=== PATIENT | female | born 2000 | race Two or more races ===

== ENCOUNTER 2022-08-28 05:08 | Emergency (ER) | payer OTHER, SELFPAY ==
--- NOTE | ~2022-08-28 | CT_ITS ---
EXAMINATION: CT ABDOMEN AND PELVIS WITHOUT CONTRAST CLINICAL INFORMATION: Right lower quadrant tenderness rule out appendicitis COMPARISON: None TECHNIQUE: Multidetector volumetric imaging was performed from the superior aspect of the liver through the pubic symphysis. Sagittal and coronal reformatted images were obtained on the technologist's workstation. This CT examination was performed using dose optimization techniques as appropriate, variously including the following: *Automated exposure control *Adjustment of mA and/or kV according to patient size (this includes techniques or standardized protocols for targeted exams where dose is matched to indication/reason for exam; i.e. extremities or head) *Use of iterative reconstruction technique DLP: 793 mGy-cm FINDINGS: LUNG BASES: The visualized lung bases are unremarkable. LIVER, GALLBLADDER, AND BILIARY TREE: The liver is enlarged measuring 19 cm in cephalocaudad dimension and demonstrates decreased attenuation consistent with hepatic steatosis. No focal hepatic lesion or biliary ductal dilatation is present. The gallbladder is not present. PANCREAS: Unremarkable. SPLEEN: Unremarkable. ADRENAL GLANDS: Unremarkable. KIDNEYS AND URETERS: The kidneys are normal in size, shape, and attenuation. No hydronephrosis, hydroureter, or calculi seen. No perinephric stranding. BLADDER: Unremarkable. GASTROINTESTINAL TRACT: The small and large bowel are unremarkable. The appendix is unremarkable. ABDOMINAL WALL: No significant hernia is appreciated. LYMPH NODES: Normal. VASCULAR: Unremarkable. PELVIC VISCERA: The uterus and adnexa are unremarkable. OSSEOUS STRUCTURES: There is mild biconvex thoracolumbar scoliosis. CT/CT abdomen pelvis wo IV con IMPRESSION: 1. A cause for the patient's acute right lower quadrant pain has not been found. The appendix is normal. 2. Incidental note made of an enlarged fatty liver. Fleischner guidelines were followed.
[2022-08-28 05:22] VITALS: BP 124/80; BP 150/90; PULSE 100; PULSE 104; RESP 16; TEMP 36.9; O2SAT 100; O2SAT 96; BMI 40.4
--- NOTE | 2022-08-28 05:29 | PC.NURSE ---
Pt reporting nausea, vomiting, diarrhea x12 hours. Pt brother at home had similar symptoms yesterday. Pt has hx of abdominal problems and vomiting has triggered pain in the center of her stomach and into her chest. EMS placed a 20g in the left hand and administered zofran. Pt stated some relief but is still nauseas with pain in the stomach and epigastric areas. Protocol orders have been put in and pt will continue to be monitored. Pt is currently waiting to see a provider.
[2022-08-28 05:43] LABS: Basophils Percent Auto 0.2 % (0-2); Eosinophils Percent Auto 0.2 % (0-4); Hematocrit 39.2 % (37.0-47.0); Hemoglobin 12.9 g/dl (12.0-16.0); Imm Gran Abs Auto 0.02 X10*3/uL (0.00-0.03); Imm Gran Pct Auto 0.2 % (0.0-0.4); Lymphocytes Absolute Auto 0.7 X10*3/uL (1.2-4.9); Lymphocytes Percent Auto 5.3 % (20-40); MANUAL DIFF FLAG SCAN; Mean Corpuscular HGB Conc 32.9 g/dl (31.0-35.0); Mean Corpuscular Hemoglobin 25.5 pg (27.0-33.0); Mean Corpuscular Volume 77.6 fL (80.0-98.0); Mean Platelet Volume 7.5 fL (9.4-12.3); Monocytes Absolute Auto 0.5 X10*3/uL (0.1-1.2); Monocytes Percent Auto 3.6 % (2-11); Neutrophils Absolute Auto 11.5 x10*3/uL (2.0-8.3); Neutrophils Percent Auto 90.5 % (45-73); Platelet Count 430 X10*3/uL (160-400); Red Blood Count 5.05 X10*6/uL (4.20-5.50); Red Cell Distribution Width 13.1 % (11.0-16.0); SCAN SMEAR FLAG 1; White Blood Count 12.7 X10*3/uL (4.8-10.8)
[2022-08-28 06:00] VITALS: BP 123/66; PULSE 98; TEMP 36.6; O2SAT 98
[2022-08-28 06:01] LABS: SLIDE REVIEW VERIFIED
[2022-08-28 06:05] LABS: Alanine Aminotransferase 28 U/L (0-31); Albumin Level 4.6 g/dL (3.5-5.0); Alkaline Phosphatase 66 U/L (39-117); Anion Gap 15 (12-20); Aspartate Amino Transferase 22 U/L (5-31); Bilirubin Direct 0.2 mg/dL (0.0-0.5); Bilirubin Total 0.5 mg/dL (0.0-1.0); Blood Urea Nitrogen 12 mg/dL (9-16); Calcium 9.5 mg/dL (8.4-10.2); Carbon Dioxide 23 mmol/L (22-29); Chloride 106 mmol/L (96-108); Creatinine Clr Calc Pharmacy 143.9; Estimated Glomerular Filt Rate > 60; Glucose Random 130 mg/dL (60-115); Lipase 27 U/L (8-78); Potassium 4.5 mmol/L (3.3-5.1); Sodium 139 mmol/L (135-145); Total Protein 7.3 g/dL (6.5-8.0)
--- NOTE | 2022-08-28 06:14 | ED.ABDPAIN ---
HPI - Abdominal Pain General Chief Complaint: Nausea/Vomiting/Diarrhea Stated Complaint: abdominal pain Time Seen by Provider: 08/28/22 06:02 Source: patient Mode of arrival: ambulatory Limitations: no limitations History of Present Illness HPI narrative: 21-year-old female who presents emergency department for evaluation of abdominal pain, nausea, vomiting and diarrhea. The patient states that she developed abdominal pain last night around 19:00 hours. She states the pain came on gradually but got progressively worse. She describes the pain is a constant, burning sensation. She states that initially the pain started in the umbilical area and now the pain is more prominent in her lower abdomen, right greater than left. Patient states that the pain is 10/10 at the time of evaluation. Patient complains of nausea. She states she has been vomiting and she lost count of the number of episodes. She also states that when she vomits she has diarrhea and she has also lost count of the episodes. She states the diarrhea is yellow. She has not noticed any blood in the vomit or diarrhea. The patient denied fever but did have shaking chills, she complains of rhinorrhea, chest pain with vomiting shortness of breath and urinary frequency. She does not know when her last menstrual period occurred since she states that her menses are irregular. MD elicited complaint: abdominal pain Onset (ago): hour(s) (12) Pain Consistency: constant Location: RLQ and LLQ Severity: severe Pain scale (0-10): 10 Quality: burning Radiation: none Migration to: LLQ and RLQ Exacerbating factors: nothing Relieving factors: nothing Associated symptoms: nausea, vomiting, diarrhea and chills Related Data Home Medications Medication Instructions Recorded Confirmed No Known Home Meds 08/28/22 08/28/22 Allergies Allergy/AdvReac Type Severity Reaction Status Date / Time citromycin Allergy Anaphylaxis Uncoded 08/28/22 05:26 Review of Systems Review of Systems Yes all other systems are reviewed and are negative [facility] Past Medical History [facility] Narrative: Past medical history: Syncope. Past surgical history: Cholecystectomy at age 15. Social history: She denies tobacco, alcohol and drug use. Social History Social History Alcohol intake: never Smoked in Last 30 Days: No Use of substances other than those prescribed or required for medical reasons: No Advance Directives: No Advance Directives Information Provided: No Patient : No Physical Exam ED Vital Signs: Vital Signs - 24 hr 08/28/22 05:22 08/28/22 05:22 Temperature 98.4 F 98.4 F Pulse Rate 104 H 104 H Respiratory Rate 16 16 Blood Pressure 124/80 124/80 Pulse Oximetry 96 96 Oxygen Delivery Method Room Air Room Air BMI result Body Mass Index 40.4 Const Other: Awake, alert, female patient, she does appear to be in distress secondary to her pain, she answers all questions appropriately, she has an elevated BMI of 40.4 HENKY Head: Yes normal to inspection, Yes normocephalic and Yes atraumatic Ears: external ears normal General nose exam: Normal external nose present Face and sinus: Yes normal facial exam Mouth: Normal oral and palatal mucosa present Throat: Yes posterior oropharynx normal Eyes General: appearance normal, both eyes and all related structures Pupils: Equal, round and reactive pupils present Neck Neck: Yes normal visual inspection, Yes no lymphadenopathy, Yes trachea midline and Yes supple Chest Chest palpation & inspection: normal inspection of the chest and normal palpation of entire chest wall Resp Effort & Inspection: normal respiratory effort and able to speak in complete sentences Auscultation: clear to auscultation bilaterally Cardio Rate: regular rate Rhythm: regular rhythm Heart sounds: S1 normal heart sound present, S2 normal heart sound present and no murmurs GI Inspection: Yes normal to inspection Palpation (GI): Soft to palpation, Tenderness to palpation present (GI) (Mild diffuse tenderness) in the LLQ ([id number]) and in the RLQ (Moderate) and no guarding Auscultation: normal bowel sounds General: Yes no CVA tenderness Back/Spine/Pelvis Back: no CVA tenderness Skin General skin exam: no rashes or lesions noted Neuro Cranial nerves: Yes CN's II-XII intact bilaterally and Yes Equal, round and reactive pupils present Cognition (Neuro): normal cognition Motor exam (neuro): 5/5 motor strength present throughout Extrem General: Yes normal to inspection Psych Appearance: grossly normal Speech and movement: Normal speech and movement present Affect: normal affect Course Course Course Narrative: 21-year-old female who presents emergency department for evaluation of 12 hours of abdominal pain which began in the umbilical area and then migrated to the lower abdomen right greater than left, nausea, vomiting and diarrhea. The patient's vital signs revealed a heart rate of 104 otherwise were unremarkable. Physical examination did reveal diffuse mild abdominal tenderness with increased tenderness in the left lower quadrant and right lower quadrant with right being greater than left. Differential includes was not limited to acute appendicitis, viral syndrome with vomiting and diarrhea, colitis. I ordered a CBC, BMP, liver panel test, lipase, quantitative beta-hCG, urinalysis, SARs-CoV2/flu/RSV test. Patient was treated with Toradol 30 mg IV, Zofran 4 mg IV and normal saline x1 L . I will obtain a CT scan of the abdomen pelvis with IV contrast to evaluate for possible appendicitis. Versus colitis. Medical Decision Making Lab Data Result Diagrams: 08/28/22 05:38 08/28/22 05:38 Labs: Lab Results 08/28/22 08/28/22 Range/Units 05:38 05:38 WBC 12.7 H (4.8-10.8) X10*3/uL RBC 5.05 (4.20-5.50) X10*6/uL Hgb 12.9 (12.0-16.0) g/dl Hct 39.2 (37.0-47.0) % MCV 77.6 L (80.0-98.0) fL MCH 25.5 L (27.0-33.0) pg MCHC 32.9 (31.0-35.0) g/dl RDW 13.1 (11.0-16.0) % Plt Count 430 H (160-400) X10*3/uL MPV 7.5 L (9.4-12.3) fL Immature Gran % (Auto) 0.2 (0.0-0.4) % Neut % (Auto) 90.5 H (45-73) % Lymph % (Auto) 5.3 L (20-40) % Pershing % (Auto) 3.6 (2-11) % Eos % (Auto) 0.2 (0-4) % Baso % (Auto) 0.2 (0-2) % Lymph # (Auto) 0.7 L (1.2-4.9) X10*3/uL Pershing # (Auto) 0.5 (0.1-1.2) X10*3/uL Eos # (Auto) 0.0 (0.0-0.4) X10*3/uL Baso # (Auto) 0.0 (0.0-0.2) X10*3/uL Abs Immat Gran (auto) 0.02 (0.00-0.03) X10*3/uL Absolute Neuts (auto) 11.5 H (2.0-8.3) x10*3/uL Absolute Nucleated RBC 0.000 (0.0-0.012) X10*3/uL Nucleated RBC % (auto) 0.0 (0.0-0.2) /100WBC Smear Tech's Comments VERIFIED Sodium 139 (135-145) mmol/L Potassium 4.5 (3.3-5.1) mmol/L Chloride 106 (96-108) mmol/L Carbon Dioxide 23 (22-29) mmol/L Anion Gap 15 (12-20) BUN 12 (9-16) mg/dL Creatinine 0.67 (0.5-1.4) mg/dL Estim Creat Clear Calc 143.9 Estimated GFR > 60 Random Glucose 130 H (60-115) mg/dL Calcium 9.5 (8.4-10.2) mg/dL Total Bilirubin 0.5 (0.0-1.0) mg/dL Direct Bilirubin 0.2 (0.0-0.5) mg/dL AST 22 (5-31) U/L ALT 28 (0-31) U/L Alkaline Phosphatase 66 (39-117) U/L Total Protein 7.3 (6.5-8.0) g/dL Albumin 4.6 (3.5-5.0) g/dL Lipase 27 (8-78) U/L Discharge Plan Discharge Clinical Impression: Abdominal pain, Nausea & vomiting, Diarrhea Patient Disposition: Still a Patient Prescriptions: No Action No Known Home Meds
[2022-08-28] MEDS: 0.9 % Sodium Chloride 1,000 ML 999 ML IV ×2 (06:35→09:18)
[2022-08-28] MEDS: Ketorolac Tromethamine 15 MG/ML VIAL 30 MG IVPUSH (06:35)
[2022-08-28] MEDS: ondansetron HCL 4 MG/2 ML VIAL IVPUSH ×2 (06:36→08:28)
[2022-08-28 06:37] LABS: HCG Quantitative < 2 mIU/mL
[2022-08-28 07:17] VITALS: BP 115/66; PULSE 84; RESP 18; TEMP 37.2; O2SAT 98
--- NOTE | 2022-08-28 07:51 | PC.NURSE ---
patient a/ox4 . saeedrsony . heart rate regular at 84 beats per minute . breathing even and unlabored . lungs clear throughout . skin pink warm and dry . abdomen soft , hyopoactive bowel bowel sounds noted throughout . rebound tenderness noted in right quadrant . patient reports 8 out of 10 pain level with nausea . Provider aware , waiting for new orders . patient aware of need for urine sample . patient on compliance monitor . patient aware of plan of care .
[2022-08-28] MEDS: fentaNYL citrate/PF 100 MCG/2 ML VIAL 12.5 MCG IVPUSH (08:28)
--- NOTE | 2022-08-28 08:35 | PC.NURSE ---
Patient medicated with 12.5 mcg fentayl citrate IVP and 4mg Zofran IVP for nausea as ordered by provider . patient on nuclear monitoring technician . patient aware of plan of care .
[2022-08-28 08:47] LABS: Influenza A PCR NEGATIVE (Negative); Influenza B PCR NEGATIVE (Negative); Resp Syncy Virus RNA Qual PCR NEGATIVE (Negative); SARS COV2 PCR INHOUSE NEGATIVE (Negative)
[2022-08-28 09:47] LABS: Appearance Urine Clear; Color Urine Yellow; Glucose Urine UA Negative (Negative); Leukocyte Esterase Urine Negative (Negative); Nitrite Urine Negative (Negative); PH 6.5 (5.0-9.0); Specific Gravity - Urine >= 1.030 (1.005-1.025); Urine Blood Negative (Negative); Urine Ketones Negative (Negative); Urine Protein Negative (Neg-Trace)
--- NOTE | 2022-08-28 11:13 | PC.NURSE ---
patient a/ox4 . VSS . Went over discharge instructions as ordered by provider . patient to return if symptoms worsen . patient to follow up with primary care . no questions at this time .
== END 2022-08-28 11:16 | disposition home or self-care (01) ==
PROVIDERS: Emergency Medicine Emergency Medical Services; Emergency Provider Student in an Organized Health Care Education/Training Program
DX: R10.9 Unspecified abdominal pain (principal); R11.2 Nausea with vomiting, unspecified; R19.7 Diarrhea, unspecified; Z20.822 Contact with and (suspected) exposure to COVID-19; Z79.899 Other long term (current) drug therapy
CPT/HCPCS: 0241U; 36415; 74176; 80048; 80076; 81003; 83690; 84702; 85025; 96361; 96374; 96375; 96376; 99285; J1885; J2405; J3010

== ENCOUNTER 2024-04-21 17:28 | Emergency (ER) | payer OTHER, SELFPAY ==
--- NOTE | ~2024-04-21 | XR_ITS ---
EXAMINATION: XR ankle RT min 3V, XR foot RT min 3V INDICATION: twisted ankle COMPARISON: No pertinent prior studies are currently available for comparison. TECHNIQUE: 2 views of the right ankle with 3 views the right foot including a lateral view of the foot and ankle FINDINGS: Right ankle: Soft tissue swelling is seen more so laterally. No significant ankle joint effusion. Bones are normal anatomic alignment with no acute fracture or dislocation seen. Ankle mortise alignment is intact. Right foot: Bones are normal anatomic alignment with no acute fracture or dislocation seen. No bony destructive lesions or periosteal reaction. XR/XR foot RT min 3V IMPRESSION: Soft tissue swelling but no acute fracture or dislocation seen.
--- NOTE | ~2024-04-21 | XR_ITS ---
EXAMINATION: XR ankle RT min 3V, XR foot RT min 3V INDICATION: twisted ankle COMPARISON: No pertinent prior studies are currently available for comparison. TECHNIQUE: 2 views of the right ankle with 3 views the right foot including a lateral view of the foot and ankle FINDINGS: Right ankle: Soft tissue swelling is seen more so laterally. No significant ankle joint effusion. Bones are normal anatomic alignment with no acute fracture or dislocation seen. Ankle mortise alignment is intact. Right foot: Bones are normal anatomic alignment with no acute fracture or dislocation seen. No bony destructive lesions or periosteal reaction. XR/XR ankle RT min 3V IMPRESSION: Soft tissue swelling but no acute fracture or dislocation seen.
--- NOTE | 2024-04-21 17:41 | ED.LOWEXIN ---
HPI - Extremity Injury (Lower) General Chief Complaint: Fall Stated Complaint: right ankle inj Time Seen by Provider: 04/21/24 18:29 Source: patient Mode of arrival: wheelchair Limitations: no limitations History of Present Illness ED Provider: molly AGUILAR Narrative: Patient is a 23-year-old female presenting to the emergency department with complaint of right ankle pain and swelling after a slip and fall down 4 stairs on the porch prior to arrival. States that when she landed she sat onto her ankle with her foot underneath her. Denies head strike but does report loss of consciousness after injury and needed assistance with standing. Has not been able to bear weight on right foot since. Reports history of syncope in the past, feels this was related to her severe pain. She is not anticoagulated. History of prior sprains to right ankle in the past. Denies chest pain, dyspnea, palpitations. Denies current dizziness or lightheadedness. Denies numbness or tingling to ankle/foot. Initially stating she is unable to move her toes, then clarified this was due to pain and is able to move her toes. complaint: ankle injury Onset (ago): hour(s) Injury: Right: ankle Place: home Severity: severe Relieving factors: rest Exacerbating factors: movement and palpation Context: fall Associated symptoms: swelling and unable to bear weight Other symptoms: loss of consciousness Treatments prior to arrival: cold therapy Related Data Previous Rx's ?Medication ?Instructions ?Recorded prochlorperazine 25 mg rectal 25 mg ID BID PRN nausea and 08/28/22 suppository (Compazine) vomiting #12 ea Allergies Allergy/AdvReac Type Severity Reaction Status Date / Time amoxicillin Allergy Anaphylaxis Verified 04/21/24 17:43 citromycin Allergy Anaphylaxis Uncoded 08/28/22 05:26 Review of Systems Review of Systems: As per HPI. Yes all other systems are reviewed and are negative Constitutional: Constitutional: Reports as per HPI PMF Social History Social History Alcohol intake: never Advance Directives: No Advance Directives Information Provided: No Physical Exam Vital Signs: Vital Signs: Last Vital Signs Temp 98.2 F 04/21/24 21:06 Pulse 88 04/21/24 21:06 Resp 20 04/21/24 21:06 BP 115/72 04/21/24 21:06 Pulse Ox 99 04/21/24 21:06 O2 Del Method Room Air 04/21/24 21:06 BMI result Body Mass Index 39.7 Vital signs have been reviewed and appear to be correct. Blood pressure normal. Heart rate slightly tachycardic. Respiratory rate normal. Temperature normal. Oxygen saturation normal. Const: General: cooperative, healthy appearing and no acute distress Orientation/consciousness: oriented to person, oriented to place, oriented to time and patient oriented x3 Limitations: no limitations HEENT: Head: Yes normocephalic and Yes atraumatic Ears: external ears normal General nose exam: Normal external nose present Face and sinus: Yes face symmetric Mouth: oropharynx normal and moist mucous membranes Throat: Yes uvula midline Eyes: Pupils: Equal, round and reactive pupils present Neck: Neck: Yes normal visual inspection and Yes supple Resp: Effort & Inspection: normal respiratory effort and able to speak in complete sentences Auscultation: clear to auscultation bilaterally Cardio: Rate: regular rate Rhythm: regular rhythm Heart sounds: S1 normal heart sound present and S2 normal heart sound present GI: Palpation (GI): Soft to palpation and nontender Auscultation: normoactive bowel sounds : General: Yes no CVA tenderness Back/Spine/Pelvis: Back: no CVA tenderness Skin: General skin exam: elasticity normal and turgor normal Neuro: General: oriented to person, oriented to place, oriented to time, patient oriented x3, moves all extremities, no focal motor deficits and CN's II-XI intact bilaterally Cranial nerves: Yes Equal, round and reactive pupils present Cognition (Neuro): normal cognition Extrem: General: Yes full ROM, Yes no pedal edema and Yes no calf tenderness Right lower extremity: ankle Details: tenderness Location: of the lateral malleolus, swelling Details: laterally and abnormal ROM (limited all directions due to pain); no ecchymosis and foot Details: normal capillary refill, abnormal ROM of toe Details: pain with active ROM Location: of all toes and vascular exam Details: dorsalis pedis pulse present and posterior tibial pulse present Psych: Mental Status: mental status grossly normal Affect: normal affect Thought process: Normal thought process present Course Course Course Narrative: This is a Rapid Medical Examination (RME) performed by Prashant Pagan PA-C in triage. Full HPI, ROS, assessment and treatment plan per primary provider in the Main ED. 23 yo female here for eval of right ankle pain s/p twisting injury while fall down 3 stairs on outdoor porch [employer]. no head strike but endorses loc. assoc nausea w/o vomiting. unable to bear weight on r ankle. father drove her to ED. + noted swelling to right ankle. 2+pt/dp pulse intact. in wheelchair. Plan: xrs ordered Medications Administered Discontinued Medications Generic Name Dose Route Start Last Admin Trade Name Johnny PRN Reason Stop Dose Admin Ibuprofen 600 mg 04/21/24 18:41 04/21/24 19:15 Ibuprofen 600 Mg Tablet PO 04/21/24 18:42 600 mg ONCE ONE Administration Medical Decision Making Medical Decision Making [facility] Narrative: Patient is a 23-year-old female presenting to the emergency department with complaint of right ankle pain and swelling after a slip and fall down 4 stairs on the porch prior to arrival. On exam patient is awake, A+Ox3, VS WNL, afebrile, normal neurological exam without focal deficits, physical exam findings as above. Given reported symptoms and physical exam findings, initial differential includes right ankle strain, sprain, fracture, dislocation, vasovagal syncope most likely as patient denies head strike, will obtain EKG, no not feel CT head indicated at this time. EKG shows normal sinus rhythm. X-ray ankle and foot notable for no acute fracture or dislocation. My interpretation is in agreement with the radiologist's interpretation. Patient updated on results and all questions answered. Patient placed in air splint and provided with crutches and crutch teaching in the emergency department. Will refer to orthopedics for ongoing symptoms. Return precautions discussed at bedside. Patient verbalized understanding of and agreement with plan. Differential Diagnosis Differential Diagnoses: The differential diagnosis associated with the presentation includes As per [facility] Independent Interpretation I performed an independent interpretation of an: EKG (normal sinus rhythm with sinus arrhythmia, rate 78 bpm, normal ID interval and QTc) and Plain X-Ray Interpretation: No acute fracture or dislocation right ankle or foot Radiology Impression Discussion of test interpretation with radiology: I have reviewed the radiologist's reading. External Record Review External record reviewed: Inpatient record, Office record and Outpatient record Discharge Plan Discharge Clinical Impression: Right ankle sprain Patient Disposition: Home, Self-Care Instructions: Ankle Sprain (DC), Crutch Instructions (ED), Ankle Stirrup Splint (ED), R.I.C.E. Treatment (ED) Additional Instructions: You have been evaluated in the emergency department today for ankle pain. Your evaluation did not find evidence of medical conditions requiring emergent intervention at this time. We have provided crutches and a splint for you to use while your ankle heals. Please rest, ice, and elevate your ankle, and resume normal activities as tolerated. We recommend you take 600mg ibuprofen every 6 hours or 650mg Tylenol every 6 hours as needed for pain. If Needed you can alternate these medications as they take 1 medication every 3 hours. For instance at noon take ibuprofen, then at 3:00 p.m. take Tylenol, then at 6:00 p.m. take ibuprofen. Please schedule an appointment for follow-up with your primary care provider this week. Return to the emergency department if you experience worsening pain, numbness, tingling, change of color in your ankle/foot, or any other concerning symptoms. Prescriptions: No Action prochlorperazine [Compazine] 25 mg suppository 25 mg ID BID PRN (Reason: nausea and vomiting) Qty: 12 0RF Print Language: Kiswahili
[2024-04-21 17:42] VITALS: BP 131/78; PULSE 105; RESP 18; TEMP 36.5; O2SAT 97; BMI 39.7
--- NOTE | 2024-04-21 18:39 | ECG_ITS ---
Test Reason : FALL Blood Pressure : / mmHG Vent. Rate : 078 BPM Atrial Rate : 078 BPM P-R Int : 134 ms QRS Dur : 078 ms QT Int : 372 ms P-R-T Axes : 049 037 032 degrees QTc Int : 424 ms Normal sinus rhythm with sinus arrhythmia Normal ECG No previous ECGs available Referred By: Arabella Santos Electronically Signed By:POLINA CHURCH MD
[2024-04-21] MEDS: Ibuprofen 600 MG TABLET PO (19:15)
[2024-04-21 21:06] VITALS: BP 115/72; PULSE 88; RESP 20; TEMP 36.8; O2SAT 99
[2024-04-21 21:46] VITALS: BP 115/72; PULSE 88; RESP 20; TEMP 36.8; O2SAT 99
== END 2024-04-21 22:06 | disposition home or self-care (01) ==
PROVIDERS: Emergency Provider Emergency Medicine; PCP Student in an Organized Health Care Education/Training Program
DX: S93.401A Sprain of unspecified ligament of right ankle, initial encounter (principal); W10.8XXA Fall (on) (from) other stairs and steps, initial encounter; Y93.89 Activity, other specified; Y92.9 Unspecified place or not applicable; Y99.9 Unspecified external cause status
CPT/HCPCS: 73610; 73630; 93005; 99283; 99284

== ENCOUNTER → 2024-04-21 18:39 | Outpatient (BNV) | payer OTHER, SELFPAY | PROVIDERS: Emergency Provider Emergency Medicine; PCP Student in an Organized Health Care Education/Training Program; Visit Provider Internal Medicine Cardiovascular Disease | DX: M25.571 Pain in right ankle and joints of right foot (principal) | CPT/HCPCS: 93010 ==

== ENCOUNTER 2025-04-09 18:42 | Emergency (ER) | payer OTHER, SELFPAY ==
[2025-04-09 18:56] VITALS: BP 139/76; PULSE 97; RESP 16; TEMP 36.3; O2SAT 100; BMI 34.4
--- NOTE | 2025-04-09 19:00 | ED_ITS ---
HPI - General Adult General Chief complaint: Urogenital-Female Stated complaint: + / spotting wants to confirm Time Seen by Provider: 04/09/25 21:13 History of Present Illness HPI narrative: Patietn left before complete of treatment by ED provider. Related Data Previous Rx's ?Medication ?Instructions ?Recorded prochlorperazine 25 mg rectal 25 mg VA BID PRN nausea and 08/28/22 suppository (Compazine) vomiting #12 ea Allergies Allergy/AdvReac Type Severity Reaction Status Date / Time amoxicillin Allergy Anaphylaxis Verified 04/09/25 19:00 chlorhexidine (From Allergy Hives Verified 04/09/25 19:00 ChloraPrep Clear) isopropyl alcohol (From Allergy Hives Verified 04/09/25 19:00 ChloraPrep Clear) citromycin Allergy Anaphylaxis Uncoded 08/28/22 05:26 [facility] Social History Social History Alcohol intake: never Advance Directives: No Advance Directives Information Provided: No Physical Exam ED Vital Signs: Vital Signs - 24 hr 04/09/25 18:56 Temperature 97.3 F Pulse Rate 97 Respiratory Rate 16 Blood Pressure 139/76 Pulse Oximetry 100 Oxygen Delivery Method Room Air BMI result Body Mass Index 34.4 Course Course Course Narrative: RME: 22 year female presents to ED for vaginal spotting and positive test. Patient states bleeding occurred after having sex 2 days ago. Patient denies any flank pain fever or chills. Labs ordered Medical Decision Making Lab Data 04/09/25 19:35 04/09/25 19:35 Labs: Lab Results 04/09/25 04/09/25 Range/Units 19:35 19:40 WBC 7.3 (4.8-10.8) X10*3/uL RBC 4.41 (4.20-5.50) X10*6/uL Hgb 11.7 L (12.0-16.0) g/dl Hct 34.9 L (37.0-47.0) % MCV 79.1 L (80.0-98.0) fL MCH 26.5 L (27.0-33.0) pg MCHC 33.5 (31.0-35.0) g/dl RDW 13.6 (11.0-16.0) % Plt Count 410 H (160-400) X10*3/uL MPV 7.7 L (9.4-12.3) fL Immature Gran % (Auto) 0.3 (0.0-0.4) % Neut % (Auto) 60.8 (45-73) % Lymph % (Auto) 28.9 (20-40) % [place] % (Auto) 4.9 (2-11) % Eos % (Auto) 4.7 H (0-4) % Baso % (Auto) 0.4 (0-2) % Lymph # (Auto) 2.1 (1.2-4.9) X10*3/uL [place] # (Auto) 0.4 (0.1-1.2) X10*3/uL Eos # (Auto) 0.3 (0.0-0.4) X10*3/uL Baso # (Auto) 0.0 (0.0-0.2) X10*3/uL Abs Immat Gran (auto) 0.02 (0.00-0.03) X10*3/uL Absolute Neuts (auto) 4.4 (2.0-8.3) x10*3/uL Absolute Nucleated RBC 0.000 (0.0-0.012) X10*3/uL Nucleated RBC % (auto) 0.0 (0.0-0.2) /100WBC PT 12.1 (10.9-12.4) SEC INR 1.1 (0.9-1.1) APTT 31.6 (26.0-36.8) SEC Sodium 141 (135-145) mmol/L Potassium 3.5 (3.3-5.1) mmol/L Chloride 107 (96-108) mmol/L Carbon Dioxide 23 (22-29) mmol/L Anion Gap 15 (12-20) BUN 12 (9-16) mg/dL Creatinine 0.71 (0.5-1.4) mg/dL Estim Creat Clear Calc 121.1 Estimated GFR > 60 Random Glucose 97 (60-115) mg/dL Calcium 9.2 (8.4-10.2) mg/dL Total Bilirubin 0.2 (0.0-1.0) mg/dL AST 22 (5-31) U/L ALT 18 (0-31) U/L Alkaline Phosphatase 66 (39-117) U/L Total Protein 7.2 (6.5-8.0) g/dL Albumin 4.4 (3.5-5.0) g/dL Beta HCG, Quant < 2 mIU/mL Urine Color Yellow Urine Appearance Clear Urine pH 6.0 (5.0-9.0) Ur Specific [place] >= 1.030 H (1.005-1.025) Urine Protein Trace (Neg-Trace) mg/dL Urine Glucose (UA) Negative (Negative) mg/dL Urine Ketones Trace (Negative) mg/dL Urine Blood Large (3+) H (Negative) Urine Nitrite Negative (Negative) Ur Leukocyte Esterase Negative (Negative) Urine RBC 0-2 (0-2) /HPF Urine WBC 0-5 (0-5) /HPF Ur Squamous Epith Cells 0-2 (0-2) /HPF Urine Bacteria None Seen (None Seen) Hyaline Casts 0-2 (0-2) /LPF Urine Test NEGATIVE (NEGATIVE) Blood Type O Positive Discharge Plan Discharge Clinical Impression: Vaginal bleeding Patient Disposition: Left W/O Completing Treatment Prescriptions: No Action prochlorperazine [Compazine] 25 mg suppository 25 mg VA BID PRN (Reason: nausea and vomiting) Qty: 12 0RF Discharge Date/Time: 04/09/25 21:25
[2025-04-09 19:39] LABS: MANUAL DIFF FLAG NO
[2025-04-09 19:40] LABS: Hematocrit 34.9 % (37.0-47.0); Hemoglobin 11.7 g/dl (12.0-16.0); Imm Gran Abs Auto 0.02 X10*3/uL (0.00-0.03); Imm Gran Pct Auto 0.3 % (0.0-0.4); Lymphocytes Absolute Auto 2.1 X10*3/uL (1.2-4.9); Mean Corpuscular HGB Conc 33.5 g/dl (31.0-35.0); Mean Corpuscular Hemoglobin 26.5 pg (27.0-33.0); Mean Corpuscular Volume 79.1 fL (80.0-98.0); NRBC Abs Auto 0.000 X10*3/uL (0.0-0.012); NRBC Pct Auto 0.0 /100WBC (0.0-0.2); Platelet Count 410 X10*3/uL (160-400); Red Blood Count 4.41 X10*6/uL (4.20-5.50); White Blood Count 7.3 X10*3/uL (4.8-10.8)
[2025-04-09 19:47] LABS: INTERNATIONAL NORM RATIO 1.1 (0.9-1.1); Prothrombin Time 12.1 SEC (10.9-12.4)
[2025-04-09 19:48] LABS: Appearance Urine Clear; Glucose Urine UA Negative (Negative); PH 6.0 (5.0-9.0); Specific Gravity - Urine >= 1.030 (1.005-1.025); UMIC TRIGGER UACC YES; UPreg QC Valid YES
[2025-04-09 19:50] LABS: Partial Thromboplastin Time 31.6 SEC (26.0-36.8)
--- OUTSIDE RECORDS SUMMARY | 2025-04-09 19:57 | XMS_ITS | Clinical Summary ---
Author Organization [facility] Address [address] [address] Phone Care Team Providers Care Zipper Setter Name Role Phone Pcp, Unknown Primary Care Provider Unavailabl e Allergies Active Allergy Reactions Criticality Noted Date Comments Amoxicillin 04/24/2021 Chlorhexidine [place] 04/24/2021 Pineapple 04/24/2021 Medications No known medications Social History Tobacco Use Types Packs/Day Years Used Date Smoking Tobacco: Never Smokeless Tobacco: Never Alcohol Use Standard Drinks/Week Comments Not Currently 0 (1 standard drink = 0.6 oz pur e alcohol) Education Answer Date Recorded Are you interested in more education? Not on arian e 01/10/2023 Are you concerned about learning? Not on file 01/10/2023 No 01/10/2023 No 01/10/2023 Digital Access Answer Date Recorded No 02/10/2023 No 02/10/2023 Reliable internet access at home? Not on file 02/10/2023 Device with a working camera? Not on file Comments Unknown Sex and Gender Information Value Date Recorded Sex Assigned at Female 04/24/2021 11:15 AM EDT Legal Sex Female 11:07 AM EDT Gender Identity Female 04/24/2021 11:15 AM EDT Sexual Orientation Not on file Last Filed Vital Signs Vital Sign Reading Time Taken Comments Blood Pressure 116/73 04/24/2021 11:12 AM EDT Pulse 72 04/24/2021 11:12 AM EDT Temperature 36.5 C (97.7 F) 04/24/2021 11:12 AM EDT Respiratory Rate 18 04/24/2021 11:12 AM EDT Oxygen Saturation 100% 04/24/2021 11:12 AM EDT Inhaled Oxygen Concentration - - Weight 88.9 kg (196 lb) 04/24/2021 11:12 AM EDT Height 154.9 cm (5' 1 ) 04/24/2021 11:12 AM EDT Body Mass Index 37.03 04/24/2021 11:12 AM EDT Plan of Treatment Health Maintenance Due Date Last Done Comments Adult Td,Tdap Booster 2002 DEPRESSION SCREENING 2014 SMOKING Hx and SMOKELESS TOBACCO SCREENING 2015 CHLAMYDIA SCREENING 2018 MENINGOCOCCAL VACCINES (B) ( 1 of 2 - Standard) 2018 HEPATITIS A VACCINES (2 of 2 - 2-dose series) 07/31/2019 01/28/2019 HEPATITIS C SCREENING 2020 HIV ONE-TIME SCREENING (18-6 5 YEARS) 2020 PAP SMEAR 2023 COVID-19 VACCINE (3 - 2023-2 5 season) 2024 02/28/2021, 02/07/2021 HPV VACCINES Completed 01/28/2019, 10/08/2017 MENINGOCOCCAL VACCINES (ACWY) Completed 01/28/2019 HIB VACCINES Aged Out No longer eligi ble based on patient's age to complete this topic PNEUMOCOCCAL VACCINES (0-49 years) Aged Out No longer eligible b ased on patient's age to complete this topic Medical Devices Not on file Insurance PARTNERSHIP A[employer] ACO ACO PARTNERSHIP ACO [facility] [employer] ACO Care Teams Zipper Setter Relationship Specialty Start Date End Date Pcp, Unknown PCP - General 04/24/21 Additional Source Comments The information contained in this document represents components of the legal health record. It is not the complete legal health record.[facility]
[2025-04-09 19:59] LABS: Alanine Aminotransferase 18 U/L (0-31); Albumin Level 4.4 g/dL (3.5-5.0); Alkaline Phosphatase 66 U/L (39-117); Anion Gap 15 (12-20); Aspartate Amino Transferase 22 U/L (5-31); Blood Urea Nitrogen 12 mg/dL (9-16); Calcium 9.2 mg/dL (8.4-10.2); Carbon Dioxide 23 mmol/L (22-29); Chloride 107 mmol/L (96-108); Creatinine Clr Calc Pharmacy 121.1; Estimated Glomerular Filt Rate > 60; Potassium 3.5 mmol/L (3.3-5.1); Sodium 141 mmol/L (135-145); Total Protein 7.2 g/dL (6.5-8.0)
--- NOTE | 2025-04-09 21:14 | PC.NURSE ---
Approached by volunteer Yisel asking about patient's lab results. Informed Yisel patient's health care can not be discussed without consent of the patient. Yisel explained patient is her daughter. Apologized to Yisel, but due to the face patient is an adult, would have to speak to patient before talking to her. Went to patient's room, patient states she wants to leave, informed patient it is her right to leave we cannot make her stay, however to get the full work up she should wait to be seen by a provider. Informed patient that t/w would talk to the nurse discharge to see where she is on the list of to be seen. Spoke w/ Tiffanie KIRAN informed her of the situation. Upon returning to patient's room, patient is standing outside the room, saying she wants to leave and demanding lab results. Patient informed she can look up her entire lab results on patient portal, patient getting agitated saying I just want to know if I'm . Informed patient that according to our tests, she is not at this time. Patient then stating but I'm having symptoms and I tested postive at home. T/w again encouraged patient to stay to speak with a provider, cannot confirm the validity of home tests, encouraged patient to log onto portal, reiterated per [facility]'s testing patient is not at this time. Patient walked out of the dept w/ mother Yisel and sister w/ a steady gait. Tiffanie KIRAN aware patient left.
== END 2025-04-09 21:25 | disposition left against medical advice (07) ==
PROVIDERS: Physician Assistant; Emergency Provider Emergency Medicine; PCP Student in an Organized Health Care Education/Training Program
DX: N93.9 Abnormal uterine and vaginal bleeding, unspecified (principal); R10.2 Pelvic and perineal pain; Z79.899 Other long term (current) drug therapy
CPT/HCPCS: 36415; 80053; 81001; 81025; 84702; 85025; 85610; 85730; 86900; 86901; 99282; 99283